=== PATIENT | male | born 1965 | race Caucasian/White ===

== ENCOUNTER 2024-07-18 14:19 | Outpatient (CLI) | payer BC | END 2024-07-18 14:20 | disposition home or self-care (01) | LOC: BICULT 14:19 | PROVIDERS: ATTEND Family Medicine | DX: N50.89 Other specified disorders of the male genital organs (principal); N50.3 Cyst of epididymis; N44.2 Benign cyst of testis | CPT/HCPCS: 76870; 93976 ==